=== PATIENT | female | born 1990 | race Caucasian/White ===

== ENCOUNTER → 2022-11-21 | Outpatient (CLI) | payer OTHER, SELFPAY ==
--- NOTE | 2022-11-21 15:05 | CT_ITS ---
EXAM: CT LEFT UPPER EXTREMITY WITHOUT INTRAVENOUS CONTRAST CLINICAL INDICATION: DISP FX WRIST TECHNIQUE: Helically acquired images were obtained of the left upper extremity without intravenous contrast. 2-D reformats were performed by the technologist. CTDIvol = ( 24.58 ) mGy, DLP = ( 801.61 ) mGycm This CT exam was performed using one or more of the following dose reduction techniques: automated exposure control, adjustment of the mA and/or kV according to patient size, and/or use of iterative reconstruction technique. COMPARISON: No relevant prior studies available. FINDINGS: ARTIFACTS: Motion artifact limits assessment. BONES/JOINTS: No obvious acute displaced fracture. There is question of a lucency involving the scaphoid waist. This could be artifactual or could represent an acute nondisplaced fracture. Would correlate with radiography which is not available at the time of this interpretation. Would also palpate for tenderness. No other evidence for acute fracture or malalignment. Small bone at the base of the first metacarpal. Preservation of the joint space. SOFT TISSUES: Muscles and tendons are normal. Neurovascular structures are grossly unremarkable. No suspicious soft tissue masses or fluid collections. No soft tissue swelling or gas. No radiopaque foreign body. CT/Extremity Upper without Contra IMPRESSION: Question of a lucency involving the scaphoid waist. This could be artifactual or could represent an acute nondisplaced fracture. Would correlate with radiography (or CT) which is not available at the time of this interpretation. Would also palpate for tenderness. Electronically Signed: Teddy Barksdale MD at 0:42 EDT ,
== END | disposition home or self-care (01) ==
LOC: CT 15:02
PROVIDERS: PCP Internal Medicine; Referring Provider Specialist; Visit Provider Specialist
DX: S62.022A Displaced fracture of middle third of navicular [scaphoid] bone of left wrist, initial encounter for closed fracture (principal)
CPT/HCPCS: 73200

== ENCOUNTER 2023-03-01 13:11 | Day surgery (SDC) | payer OTHER, SELFPAY ==
--- NOTE | 2023-02-27 16:55 | PCM.HP.BLA ---
History and Physical Date of Admission: 03/01/23 HPI: The patient is a 33 year old female presenting for pre-operative visit. She is scheduled for Suction D&C, for missed ab at 11 weeks on 03/01/23. Procedure discussed along with risks, benefits and complications. Other alternatives discussed for management. Consent form signed? no PAST MEDICAL HISTORY Diagnosis Date ? Abnormal Pap smear of cervix ? ASCUS with positive high risk HPV 08/07/13 ? ASTHMA EXERCISE INDUCED ? Asthma ? Generalized anxiety disorder Anxiety, Generalized PAST SURGICAL HISTORY Procedure Laterality Date ? TONSILLECTOMY PRIMARY/SECONDARY <AGE 10 Tonsillectomy ? VAGINOSCOPY 09/11/13 Benign Current Outpatient Medications Medication Sig Dispense Refill ? PNV no.95/ferrous fum/folic ac ( ORAL) Take by mouth. ? MULTIVITAMIN ORAL Take by mouth. No current facility-administered medications for this visit. ALLERGIES: Amoxicillin PERSONAL HISTORY: Social History Tobacco Use ? Smoking status: Never ? Smokeless tobacco: Never Vaping Use ? Vaping Use: Never used Substance Use Topics ? Alcohol use: Yes Comment: OCCASIONALLY BUT NOT WHILE ? Drug use: No FAMILY HISTORY: FAMILY HISTORY Problem Relation Age of Onset ? Hypertension Father ? Thyroid Father ? Osteoporosis Maternal Grandmother ? Thyroid Maternal Grandmother ? Breast Cancer Maternal Grandmother ? Heart Paternal Grandmother ? Lung Cancer Paternal Grandmother ? Prostate Cancer Paternal Grandfather ? Alzheimer's Disease Paternal Grandfather REVIEW OF SYMPTOMS: GENERAL: denies fevers or chills ENDOCRINOLOGY: has not been on steroids Cardiology : denies palpitations or chest pain Respiratory: denies SOB or cough Hematology: denies history of prolonged bleeding or easy bruising or VTE Allergy: Denies history of personal or family history of allergy to anesthesia PHYSICAL EXAMINATION: VITALS: Last menstrual period 12/10/2022, unknown if currently . GENERAL: The patient is well nourished, well hydrated in no acute distress. , The patient is oriented to time, place, and person. NECK: Supple. No lynphadenopathy, normal thyroid, no thyromegaly. LUNGS: Clear to auscultation bilaterally. no wheezes, rhonchi or rales HEART: Regular rate and rhythm, Normal heart sounds, and No murmurs or gallops US done 02/26/23: Patient presents for first trimester ultrasound 1.) There is pole present with no cardiac activity Recommendations 1.) Follow up as clinically indicated. Maternal Assessment Height 168 cm Height (ft) 5 ft Height (in) 6 in Physical Exam Initial weight (lb) 168 lb Initial BMI 27.13 kg/m? Maternal assessment other: 3 Para 2 Method Transabdominal ultrasound examination Rodriguez . Number of fetuses: 1 Dating LMP on: 12/10/2022 GA by LMP 11 w + 1 d YASIR by LMP: 09/16/2023 Ultrasound examination on: 02/26/2023 GA by U/S based upon: CRL GA by U/S 11 w + 1 d YASIR by U/S: 09/16/2023 Assigned: based on ultrasound (CRL), selected on 01/31/2023 Assigned GA 12 w + 4 d Assigned YASIR: 09/06/2023 General Evaluation Cardiac activity absent IMPRESSION: 33 YOF w Patient's last menstrual period was 12/10/2022. and 11 week sized missed ab PLAN: The risks/benefits/alternatives and personal involved for the planned suction D&C were reviewed with the patient. Her questions were answered to her satisfaction and she desires to proceed. Consent was signed. I reviewed with her postop instructions and expectations. I have reviewed and updated past medical and surgical history, medications and allergies Assessment & Plan Assessment/Plan (1) 11 weeks gestation of : (2) Missed :
[2023-03-01] VITALS (7 sets, daily range): BP systolic 92–132; BP diastolic 54–93; PULSE 68–83; RESP 16; TEMP 36.8–37.1; O2SAT 95–100; BMI 27.0
--- NOTE | 2023-03-01 | POC_PTH ---
PATIENT: SELENA LOREDO LOC: [facility] [place] U#:[id number] AGE/SX: 33/F ROOM: RE03/01/[address]: Dr. Gem Thomas MD : 1990 BED: DIS: 03/01/2023 SPEC #: [id number] RECD: 03/01/23 16:23 STATUS: CHRISTIAN RESoila #: [id number] DAVID: 03/01/23 00:[address]: Gem Thomas DEPT: SURGICAL PATHOLOGY RECD BY: Cory Wilks ENTERED: 03/04/23 10:21 SP TYPE: PROD CONC OTHR DR: Dr. Ki Weiss MD Tissues: Product of conception, NOS Procedures: Surgery Specimen Level IV HEADER OPERATION: Suction dilation and curettage, Anora testing PRE-OP DIAGNOSIS: 11-week missed TISSUE SUBMITTED: Products of conception MICROSCOPIC DIAGNOSIS Endometrium, curettage: Chorionic villi, decidualized stroma and trophoblastic cells consistent with products of conception. See comment. AM:rg 03/05/2023 COMMENT Early forming parts are present. Clinical correlation is suggested. MICROSCOPIC DESCRIPTION Slides are reviewed. GROSS DESCRIPTION Received without fixative is one container labeled with the patient's name and designated products of conception. The specimen consists of multiple fragments of hemorrhagic soft tissue that in aggregate measure 7.0 x 7.0 x 1.5 cm. A portion of tissue is submitted for Anora study. No tissue is identified. Setter Cold Rolling Machine tissue is submitted in two cassettes. / SJ:rg 03/04/2023 TC:5 CPT: 98000
[2023-03-01 13:57] LABS: Hematocrit 43.1 % (37-47); Hemoglobin 14.4 g/dL (12.0-15.0); Mean Corp Hgb Conc 33.4 g/dL (32-36); Mean Corpuscular Hgb 30.5 pg (27.0-32.0); Mean Corpuscular Volume 91.3 fL (81-99); Mean Platelet Vol. 10.1 fl (6.2-12.0); Platelet Count 270 K/mm3 (150-450); RBC Distribution Width CV 12.2 % (11.6-14.6); RBC Distribution Width SD 40.8 fl (35.1-43.9); Red Blood Count 4.72 M/mm3 (4.2-5.4); White Blood Count 8.2 K/mm3 (4.4-11.0)
[2023-03-01] MEDS: Lactated Ringers 1,000 ML 15 ML IV (14:05)
[2023-03-01] MEDS: Doxycycline 100 MG CAPSULE PO (14:05)
[2023-03-01] MEDS: Acetaminophen 500 MG Tablet 1000 MG PO (14:06)
[2023-03-01] MEDS: Ketorolac 30 MG/ML Syringe IV (14:06)
--- NOTE | 2023-03-01 15:30 | PCM.DC ---
Discharge Instructions Diet Discharge Diet: No restrictions Activity May resume sexual activity in: 2 weeks Lifting Restrictions: none Dressing / Incision Call your doctor if your incision/area has: Sudden Increased Bleeding and Foul Smelling Discharge Call your doctor if you observe: Fever of 101 or Higher and Using more than 1 pad per hour (for 2 hrs in a row) Follow Up Care Please Follow Up With: Gem Thomas MD When: 1-3 weeks or as needed. Call [phone] or send a [employer] message to make an appointment or with any concerns. Our office will contact you with the genetic testing when the results are in. Test Results: Test results from this visit will be discussed in further detail at your follow-up appointment, if applicable. Discharge Plan Admission Primary Reason for Your Visit: Suction Dilation and curettage Attending Provider: Gem Thomas Primary Care Provider: Ki Weiss Discharge Orders/Prescriptions Prescriptions: Continued multivitamin [Daily Multiple] 1 EACH tablet 1 ea PO DAILY Referrals / Follow Up: Ariel Mcgregor [[facility]] - Disposition Disposition (needs filled in before D/C Order can be placed): Home, Self Care
--- NOTE | 2023-03-01 15:32 | PCM.OPRPT ---
Problems Associated Problem List Diagnoses (1) Missed : (2) 11 weeks gestation of : Report of Operation Date of Procedure: 03/01/23 Pre-Operative Diagnosis: 11 week missed Post-Operative Diagnosis: same Surgery/Procedure Performed:: Suction Dilation and curettage Description of Surgical Findings:: US performed before procedure confirmed absence of cardiac activity. 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 The patient was taken to the operating room where she was prepped and draped in a dorsolithotomy position. A bimanual examination was done and confirmed the uterus to be 11 weeks size and [anteverted]. A weighted speculum was placed in the vagina and the anterior lip of the cervix was grasped with a single-tooth tenaculum. The cervix was dilated serially. A 11 mm suction curette was placed to the uterine fundus and the suction was created. Several passes were made to remove clots and products of conception. When minimal tissue was returning a gentle sharp curettage was then done of the uterine cavity. The uterine cry was appreciated and another gentle pass was made with the suction curette. At this point there is no active bleeding from the uterus and minimal blood and no further products of conception were removed. The patient was given a dose of IM Methergine. Another transabdominal ultrasound was performed which revealed a bright white endometrial stripe of 8 mm. No retained products or heterogeneous debris was visualized. The instruments removed from the cervix and the cervix was observed and no active bleeding was identified. The tenaculum was removed off the cervix and hemostasis of the tenaculum site was assured. Made of the instruments removed from the vagina and the vaginal sweep was completed by me. Sponge and needle counts were correct. The patient was taken to the recovery room in stable condition. Findings: 11 week size uterus, normal cervix and vagina. Specimen: Products of conception Grafts/Implants Used: none Procedure Start Time: 15:36 Procedure Stop Time: 15:49 Complications none Admit VTE Documentation VTE Present on Admission: No VTE Mechan Device Prophylaxis: SCD's VTE Pharm Prophylaxis ordered?: No Reason prophylaxis not ordered:: Procedure Not Indicated
[2023-03-01] MEDS: Lidocaine 1% /Epi 1:100 (20ml) 20 ML Vial (15:36)
[2023-03-01] MEDS: Methylergonovine 0.2 MG/ML Ampul IM (15:46)
== END 2023-03-01 17:05 | disposition home or self-care (01) ==
LOC: SDC 13:12 → AC 13:13
PROVIDERS: PCP Internal Medicine; Referring Provider Obstetrics & Gynecology; Visit Provider Obstetrics & Gynecology
PROC: (CPT 59812; principal; 2023-03-01 15:45)
DX: O02.1 Missed abortion (principal)
CPT/HCPCS: 59812; 01965; 85027; 86850; 86900; 86901; 88305; J7120; J2405